=== PATIENT | male | born 1985 | race Caucasian/White ===

== ENCOUNTER 2017-04-03 17:36 | Emergency (ER) | payer OTHER ==
[2017-04-03] MEDS ORDERED: KETOROLAC 60 MG/2 ML VIAL IM STA (18:20)
--- NOTE | 2017-04-03 18:22 | ED Physician Documentation ---
PD HPI CHEST PAIN - Stated complaint Stated Complaint: CHEST PX/SOA - Chief complaint Chief Complaint: Resp - History obtained from History obtained from: Patient, Family () - History of Present Illness Timing - onset: Other (He had some back and chest pain, better in a prone position for the last 2 days which became worse a few hours ago with cramping in the sternal area. No shortness of breath except from pain. Tried some Motrin earlier this morning which did give him some relief. He has no personal or family history of DVT/PE. No recent travel. No cough. No calf pain or swelling. No hemoptysis. Family history is otherwise notable for maternal uncles with early sudden unexplained but no clear coronary disease.) Review of Systems Constitutional: denies: Fever, Chills Cardiac: reports: Chest pain / pressure. denies: Palpitations, Pedal edema, Calf pain Respiratory: denies: Dyspnea, Cough, Hemoptysis, Wheezing GI: denies: Abdominal Pain PD PAST MEDICAL HISTORY - Past Medical History Past Medical History: Yes Other Past Medical History: eosinophilic esophagitis - Present Medications Home Medications: Ambulatory Orders Medication Instructions Recorded Confirmed Esomeprazole Magnesium [Nexium] 40 04/03/17 Ketorolac [Toradol] 10 mg PO Q6H PRN #10 tablet 04/03/17 - Allergies Allergies/Adverse Reactions: Allergies Allergy/AdvReac Type Severity Reaction Status Date / Time No Known Drug Allergies Allergy Verified 04/03/17 17:48 - Social History Does the pt smoke?: No Smoking Status: Never smoker - Immunizations Immunizations are current?: Yes PD ED PE NORMAL - Vitals Vital signs reviewed: Yes - General General: Alert and oriented X 3, No acute distress, Other (winces with motion) - Neck Neck: Supple, no meningeal sign, No bony TTP - Cardiac Cardiac: RRR, No murmur, Strong equal pulses, Other (nontender sternum) - Respiratory Respiratory: No respiratory distress, Clear bilaterally - Abdomen Abdomen: Non tender - Extremities Extremities: No edema, No calf tenderness / cord - Neuro Neuro: Alert and oriented X 3, Normal speech - Psych Psych: Normal mood, Normal affect Results - Vitals Vitals: Vital Signs - 24 hr 04/03/17 04/03/17 04/03/17 17:36 19:11 19:44 Temperature 36.6 C 36.4 C L 36.7 C Heart Rate 83 81 75 Respiratory 16 15 18 Rate Blood Pressure 123/81 H 122/73 132/67 H O2 Saturation 99 97 99 Oxygen O2 Source Room air - EKG (time done) 1708 Rate: Rate (enter#) (76) Rhythm: NSR [place]: Normal Intervals: Normal MI QRS: Normal Ischemia: ST elevation c/w repol. No: ST elevation c/w ischemia Computer interpretation: Agree with computer - Rads (name of study) 2v chest Radiology: EMP read contemporaneously (Lung volumes, with borderline cardiomegaly likely related to that) PD MEDICAL DECISION MAKING - ED course ED course: Bilateral upper extremity blood pressures were checked and equivalent I considered pulmonary embolism in this patient. Clinically the pretest probability of pulmonary embolism is less than 15%. I applied the PERC rules as follows: The patient's age is under 50. The patient's heart rate is less than 100. The patient's oxygen saturation on room air is greater than 94%. The patient does not have a history of DVT or PE. The patient has no recent trauma or surgery. The patient has no hemoptysis. The patient is not on exogenous estrogens. The patient does not have clinical signs suggesting DVT. Given all these are negative the patient ruled out for pulmonary embolism by the PERC criteria. Seems like pleurisy, had significant improvement with Toradol. Departure - Departure Disposition: 01 Home, Self Care Clinical Impression: Chest pain Qualifiers: Chest pain type: unspecified Qualified Code(s): R07.9 - Chest pain, unspecified Condition: Good Record reviewed to determine appropriate education?: Yes Instructions: ED Chest Pain NonCardiac Prescriptions: Ketorolac [Toradol] 10 mg PO Q6H PRN #10 tablet PRN Reason: Pain Comments: Call your doctor to arrange a follow up appointment. Make the next available appointment. In the interim return anytime if worse or if new symptoms develop. Discharge Date/Time: 04/03/17 19:44
[2017-04-03] MEDS ORDERED: KETOROLAC 60 MG/2 ML VIAL ONE (18:26)
--- NOTE | 2017-04-03 19:19 | XRAY Preliminary Report ---
Exam: XR Chest 2 View PA/LAT IMPRESSION: 1. Low lung volumes without clear evidence of focal infiltrate. 2. Borderline cardiomegaly. 3. No evidence of pneumothorax. [facility] SITE ID: [id number]
--- NOTE | 2017-04-03 19:22 | XRAY Report ---
EXAM: CHEST RADIOGRAPHY EXAM DATE: 04/03/2017 06:38 PM. CLINICAL HISTORY: Chest pain/back pain. COMPARISON: None. TECHNIQUE: 2 views. FINDINGS: Lungs/Pleura: Y view somewhat low. This may account for the suggestion of mildly increased opacity wi thin the mid lungs on frontal view. There is no clear evidence of focal infiltrate or pleural effusio n. No pneumothorax. Mediastinum: Borderline cardiomegaly. Other: None. IMPRESSION: 1. Low lung volumes without clear evidence of focal infiltrate. 2. Borderline cardiomegaly. 3. No evidence of pneumothorax. [facility] Referring Provider Line: [phone] SITE ID: [id number]
[2017-04-03 19:46] VITALS: BP 132/67
== END 2017-04-03 19:44 | disposition home or self-care (01) ==
LOC: ED 17:36
DX: R07.9 Chest pain, unspecified (principal)
CPT/HCPCS: 71020; 93005; 93010; 96372; 99283; 99284

== ENCOUNTER 2017-07-07 10:06 | Day surgery (SDC) | payer OTHER ==
[2017-07-07] MEDS ORDERED: LACTATED RINGERS 1,000 ML IV ONE (10:20)
[2017-07-07] MEDS ORDERED: MIDAZOLAM 2 MG/2 ML VIAL IVP ONE (11:41)
[2017-07-07] MEDS ORDERED: fentaNYL 100 MCG/2 ML VIAL IVP ONE (11:41)
--- NOTE | 2017-07-07 12:19 | PROCEDURE REPORT ---
DATE OF PROCEDURE: 07/07/2017 00:00:00 PROCEDURE: EGD. ENDOSCOPIST: Jorge Alberto Dominguez MD. PRIMARY CARE: DAKSHA Ward. INDICATION: History of eosinophilic esophagitis with dysphagia, now under fairly reasonable control, taking Flovent. Last dilated in December. Now not complaining much in the way of symptoms. Need followup on healing of the eosinophilic esophagitis and reflux esophagitis. PREMEDICATIONS: Fentanyl 150 mcg, Versed 7 mg IV titration. After informed consent was obtained, the patient was placed in the left lateral decubitus position. T he video upper scope was placed into the oropharynx and with the patient's help swallowed into the es ophagus. The esophagus, stomach, and duodenum were carefully examined. On withdrawal, retroflexed vie w of the GE junction was performed. The scope was removed. The patient tolerated the procedure well. BLOOD LOSS: None. COMPLICATIONS: None. FINDINGS 1. Clear cut evidence of moderate to severe eosinophilic esophagitis throughout the entire esophagus. This included deep longitudinal furrows, pits particularly distally, and multiple rings. There was a dominant ring at the GE junction, perhaps right around the size of the scope, but it could be easily passed. No trauma was seen on withdrawal. 2. Evidence of reflux esophagitis with at least 3 erosions noted in the distal third of the esophagus despite taking Nexium once daily. 3. Normal stomach. 4. Normal duodenum. The patient will follow up in the office and stay on his current medications at the current time. I s uspect he will need more Nexium in the short term. If he has not already undergone allergy testing, h e should be seen by an radon inspector for formal testing. JOB #: [id number] EXT JOB #:[id number]
[2017-07-07 12:46] VITALS: BP 128/70
== END 2017-07-07 10:07 | disposition home or self-care (01) ==
LOC: SDS 10:06
PROVIDERS: ATTEND Internal Medicine Gastroenterology
PROC: 0DB58ZX Excision of Esophagus, Via Natural or Artificial Opening Endoscopic, Diagnostic (ICD-10-PCS; principal; 2017-07-07 11:00)
DX: K20.0 Eosinophilic esophagitis (principal); K21.0 Gastro-esophageal reflux disease with esophagitis
CPT/HCPCS: 43239; 88305; J7120